=== PATIENT | female | born 1955 | race Hispanic/Latino ===

== ENCOUNTER 2017-06-26 10:09 | Outpatient (CLI) | payer OTHER ==
[2017-06-26 10:58] LABS: #Eosinphils 0.5 thou/uL (0.0-0.7); #Lymphocytes 1.6 thou/uL (1.20-3.40); #Monocytes 0.4 thou/uL (0.11-0.59); #Neutrophils 5.8 thou/uL (1.40-6.50); %Basophils 0.5 % (0.0-1.0); %Eosinophils 5.7 % (0.0-10.0); %Lymphocytes 19.2 % (21.0-51.0); %Monocytes 4.9 % (0.0-10.0); %Neutrophils 69.7 % (42.0-75.0); Mean Corpuscular HGB CONC 33.2 g/dL (32.0-36.0); Mean Corpuscular Hemoglobin 31.4 pg (27.0-31.0); Mean Corpuscular Volume 94.4 fl (81.0-99.0); Mean Platelet Volume 10.2 fL (7.4-10.4); Platelet Count 257 thou/uL (130-400); RBC Distribution Width 12.4 % (11.5-14.5); Red Blood Cell (RBC) Count 4.48 mill/uL (4.20-5.40); White Blood Cell (WBC) Count 8.4 thou/uL (4.8-10.8)
[2017-06-26 11:28] LABS: ALT (SGPT) 43 U/L (8-55); AST (SGOT) 34 U/L (5-34); Albumin 4.4 g/dL (3.5-5.0); Alkaline Phosphatase 104 U/L (40-150); Anion Gap 15 mmol/L (10-20); BUN (Urea Nitrogen) 13 mg/dL (9.8-20.1); Bilirubin, Total 0.7 mg/dL (0.2-1.2); Calc. Creatinine Clearance 0 mL/min (70-130); Calcium 10.2 mg/dL (7.8-10.44); Carbon Dioxide 26 mmol/L (22-29); Chloride 101 mmol/L (98-107); Estimated GFR-MDRD 84; Globulin 2.9 g/dL (2.4-3.5); Glucose 164 mg/dL (70-105); Potassium 3.9 mmol/L (3.5-5.1); Protein, Total 7.3 g/dL (6.0-8.3); Sodium 138 mmol/L (136-145)
--- NOTE | 2017-07-01 08:44 | EKG ---
Test Reason : Blood Pressure : / mmHG Vent. Rate : 080 BPM Atrial Rate : 080 BPM P-R Int : 194 ms QRS Dur : 078 ms QT Int : 380 ms P-R-T Axes : 053 003 032 degrees QTc Int : 438 ms Normal sinus rhythm Inferior infarct , age undetermined Possible Anterior infarct , age undetermined Abnormal ECG No previous ECGs available Confirmed by ANA SANTORO MD ([id number]) on 07/01/2017 8:43:41 AM Referred By: TONIE Confirmed By:ANA SANTORO MD
== END 2017-06-26 10:10 | disposition home or self-care (01) ==
LOC: LABBT 10:09
PROVIDERS: ATTEND Surgery
DX: Z01.818 Encounter for other preprocedural examination (principal); K43.2 Incisional hernia without obstruction or gangrene
CPT/HCPCS: 80053; 85025; 93005; 93010

== ENCOUNTER 2017-06-26 10:41 | Outpatient (CLI) | payer OTHER | END 2017-06-26 10:42 | disposition home or self-care (01) | LOC: BICMAMMO 10:41 | PROVIDERS: ATTEND Family Medicine | DX: Z12.31 Encounter for screening mammogram for malignant neoplasm of breast (principal) | CPT/HCPCS: 77063; 77067 ==

== ENCOUNTER 2017-07-05 08:18 | Inpatient (IN) | payer OTHER ==
[2017-06-26 10:38] VITALS: BMI 49.5
[2017-07-05] MEDS ORDERED: CEFAZOLIN/Water 2 GM/20 ML SYRINGE ONE (11:15)
[2017-07-05] MEDS ORDERED: Bupivacaine/Epinephrine 0.25% 30 ML VIAL ONE (12:49)
[2017-07-05] MEDS ORDERED: Midazolam HCl 2 mg/2 ml Vial ONE (12:54)
[2017-07-05] MEDS ORDERED: Lidocaine 1% (PF) 30 ML VIAL ONE (12:54)
[2017-07-05] MEDS ORDERED: Fentanyl 100 MCG/2 ML VIAL ONE (12:54)
[2017-07-05] MEDS ORDERED: HYDROmorphone 0.5 MG/0.5 ML SYRINGE ONE ×3 (12:54→15:56)
[2017-07-05] MEDS ORDERED: Glycopyrrolate 0.2 MG/ML 5 ML SYRINGE ONE ×2 (13:08)
[2017-07-05] MEDS ORDERED: Ketorolac Tromethamine 30 MG/ML VIAL ONE (13:08)
[2017-07-05] MEDS ORDERED: Lidocaine 1% PF 5 ML VIAL ONE (13:08)
[2017-07-05] MEDS ORDERED: Dexamethasone 20 MG/5 ML VIAL ONE (13:08)
[2017-07-05] MEDS ORDERED: PROPOFOL 200 MG/20 ML VIAL ONE (13:08)
[2017-07-05] MEDS ORDERED: Ondansetron HCl/PF 4 MG/2 ML Vial ONE ×2 (13:08→13:10)
[2017-07-05] MEDS ORDERED: Zolpidem Tartrate 5 MG TAB PO PRN (13:54)
[2017-07-05] MEDS ORDERED: Morphine Sulfate 2 MG/ML SYRINGE SLOW IVP PRN (13:54)
[2017-07-05] MEDS ORDERED: diphenhydrAMINE 25 MG CAP PO PRN (13:54)
[2017-07-05] MEDS ORDERED: Promethazine HCl 25 MG/ML VIAL IM PRN ×3 (13:54→14:37)
[2017-07-05] MEDS ORDERED: Ondansetron HCl/PF 4 MG/2 ML Vial IVP PRN ×3 (13:54→14:37)
[2017-07-05] MEDS ORDERED: Meperidine HCl/PF 25 MG/ML VIAL SLOW IVP PRN (13:54)
[2017-07-05] MEDS ORDERED: Naloxone HCl 0.4 mg/ml Vial IV PRN (13:54)
[2017-07-05] MEDS ORDERED: Promethazine HCl 25 MG/ML VIAL SLOW IVP PRN (13:54)
[2017-07-05] MEDS ORDERED: diphenhydrAMINE 50 MG/ML VIAL IVP PRN (13:54)
[2017-07-05] MEDS ORDERED: diphenhydrAMINE 50 MG/ML VIAL IM PRN (13:54)
[2017-07-05] MEDS ORDERED: Communication Order-Pharmacy FS SCH (14:00)
[2017-07-05] MEDS ORDERED: hydrALAZINE 20 MG/ML VIAL SLOW IVP PRN (14:37)
[2017-07-05] MEDS ORDERED: Morphine 4 MG/ML VIAL SLOW IVP PRN (14:37)
[2017-07-05] MEDS ORDERED: Morphine 4 MG/ML Carpuject SLOW IVP PRN (14:37)
[2017-07-05] MEDS ORDERED: Dextrose 5% in Water 1,000 ML IV PRN (14:37)
[2017-07-05] MEDS ORDERED: Dextrose 50% Abboject 50 ML SYRINGE SLOW IVP PRN (14:37)
[2017-07-05] MEDS ORDERED: HYDROcodone/Acetaminophen 10/325 mg Tablet PO PRN ×2 (14:37)
[2017-07-05] MEDS ORDERED: Morphine 4 MG/ML VIAL ONE ×3 (14:57→15:33)
--- NOTE | 2017-07-05 14:59 | OP ---
PREOPERATIVE DIAGNOSIS: Incisional ventral hernia. SURGEON: Ramos Peace M.D. PROCEDURE PERFORMED: Laparoscopic ventral hernia repair with mesh. INDICATIONS: This is a 61-year-old female with a painful incisional hernia at the medial aspect of s ubcostal incision from previous open cholecystectomy, it was enlarging and causing pain. FINDINGS: There was a large amount of omental fat entrapped and a 2 cm defect. This was able to be reduced. Defect was closed and buttressed with mesh. PROCEDURE IN DETAIL: After informed consent was obtained, the patient was taken to the operating lilo m and given general endotracheal anesthesia. She was placed in the supine position left side slightl y propped up. Her flank and abdomen were prepped and draped in usual fashion. Local anesthesia infi ltrated subcutaneously and deep and a 12 mm incision was performed at left flank. Veress needle inse rted. Drop test performed. Pneumoperitoneum was created to a volume of 2 liters of carbon dioxide. Utilizing a bladeless 12 mm trocar and 0 degree laparoscope, direct visual entry into the abdominal cavity was performed. Pneumoperitoneum was created to a pressure of 15 mmHg initially. A laparoscop ic lysis of adhesions was performed and the hernia contents were reduced. The falciform ligament was also from the anterior abdominal wall. The defect measured at 2 cm. A 6 inch round Proce ed mesh was fashioned with 0 Ethibond placed in four quadrants. It was hydrated, rolled, and inserte d intra-abdominally. Then, the pressure was reduced to 10 mmHg. The sutures were individually grasp ed to position the mesh optimally to cover the defect. Then these were tied down and the SecureStrap Tacker was used to tack the mesh circumferentially to the abdominal wall, then hemostasis assured. Trocars and retractors removed. The fascia closed and the skin closed with interrupted 4-0 Rapide. Dermabond applied. The patient tolerated the procedure well and was transferred to recovery in good condition. Sponge and needle count verified correct x2.
[2017-07-05] MEDS ORDERED: HYDROmorphone 0.5 MG/0.5 ML SYRINGE SLOW IVP PRN (15:33)
[2017-07-05] MEDS: Acetaminophen 1,000 MG in Premix Bag 1 BAG IVPB SCH (17:44)
[2017-07-05] MEDS: Ketorolac Tromethamine 30 MG/ML VIAL IVP SCH (17:45)
[2017-07-05] MEDS: Lactated Ringer's 1,000 ML IV SCH (17:48)
[2017-07-05] MEDS: Famotidine 20 MG TAB PO SCH (20:18)
[2017-07-05] MEDS: HumaLOG 300 UNITS/3 ML VIAL SC PRN (20:35)
[2017-07-05] MEDS: cefOXitin 2 GM in Sodium Chloride 0.9% 100 ML IVPB SCH (21:49)
[2017-07-05] MEDS: Famotidine 40 MG/4 ML VIAL SLOW IVP SCH (21:52)
[2017-07-06] MEDS: Acetaminophen 1,000 MG in Premix Bag 1 BAG IVPB SCH ×3 (00:22→11:28)
[2017-07-06] MEDS: Lactated Ringer's 1,000 ML IV SCH (00:22)
[2017-07-06] MEDS: Ketorolac Tromethamine 30 MG/ML VIAL IVP SCH ×3 (00:22→11:27)
[2017-07-06 05:40] LABS: #Monocytes 0.5 thou/uL (0.11-0.59); #Neutrophils 9.6 thou/uL (1.40-6.50); %Basophils 0.1 % (0.0-1.0); %Eosinophils 0.1 % (0.0-10.0); %Lymphocytes 9.3 % (21.0-51.0); %Monocytes 4.5 % (0.0-10.0); Hemoglobin 11.7 g/dL (12.0-16.0); Mean Corpuscular HGB CONC 33.2 g/dL (32.0-36.0); Mean Corpuscular Hemoglobin 30.9 pg (27.0-31.0); Mean Corpuscular Volume 93.2 fl (81.0-99.0); Mean Platelet Volume 9.5 fL (7.4-10.4); Platelet Count 205 thou/uL (130-400); RBC Distribution Width 12.4 % (11.5-14.5); White Blood Cell (WBC) Count 11.2 thou/uL (4.8-10.8)
[2017-07-06 05:47] LABS: Anion Gap 13 mmol/L (10-20); BUN (Urea Nitrogen) 17 mg/dL (9.8-20.1); Calc. Creatinine Clearance 196 mL/min (70-130); Calcium 8.5 mg/dL (7.8-10.44); Carbon Dioxide 23 mmol/L (22-29); Chloride 104 mmol/L (98-107); Estimated GFR-MDRD Greater than 90; Glucose 168 mg/dL (70-105); Potassium 3.9 mmol/L (3.5-5.1); Sodium 136 mmol/L (136-145)
[2017-07-06] MEDS: HumaLOG 300 UNITS/3 ML VIAL SC PRN (06:27)
[2017-07-06] MEDS: cefOXitin 2 GM in Sodium Chloride 0.9% 100 ML IVPB SCH (06:55)
[2017-07-06] MEDS: Famotidine 40 MG/4 ML VIAL SLOW IVP SCH (08:01)
[2017-07-06] MEDS: Famotidine 20 MG TAB PO SCH (08:01)
[2017-07-06] MEDS ORDERED: Enoxaparin Sodium 40 MG/0.4 ML SYRINGE SC SCH (09:00)
[2017-07-06 11:46] VITALS: BP 101/63; TEMP 98
--- NOTE | 2017-07-06 13:08 | DIS ---
DISCHARGE DIAGNOSIS: Incisional ventral hernia. PROCEDURES DURING ADMISSION: Laparoscopic ventral hernia repair with mesh. HOSPITAL COURSE: The patient was admitted because of pain control. She is doing much better now. V ital signs are fine. She is tolerating liquids. Her pain is controlled on oral medications. She is discharged home on Poyntelle and Zofran. She will follow up with me in 2 weeks.
== END 2017-07-06 13:57 | disposition home or self-care (01) | DRG 355 ==
LOC: SDC 08:18 → OBSVTOIN 14:37 → SURG A 14:37
PROVIDERS: ADMIT Surgery; ATTEND Surgery
PROC: 0WUF4JZ Supplement Abdominal Wall with Synthetic Substitute, Percutaneous Endoscopic Approach (ICD-10-PCS; principal; 2017-07-05)
DX: K43.2 Incisional hernia without obstruction or gangrene (principal)
CPT/HCPCS: 36415; 36416; 80048; 85025; J0131; J0694; J1100; J1170; J1650; J1885; J2001; J2250; J2270; J2405; J2704; J3010; J7050

== ENCOUNTER 2017-07-20 06:58 | Day surgery (SDC) | payer OTHER ==
[2017-07-19 17:15] VITALS: BMI 48.8
[2017-07-20] MEDS ORDERED: Lidocaine 1% PF 5 ML VIAL ONE (10:39)
[2017-07-20] MEDS ORDERED: PROPOFOL 200 MG/20 ML VIAL ONE (10:39)
--- NOTE | 2017-07-20 10:53 | OP ---
DATE OF PROCEDURE: 07/20/2017 PROCEDURE: Screening colonoscopy. PREOPERATIVE DIAGNOSIS: Colon cancer screening. OPERATIVE NOTE: Informed consent was obtained from the patient. She was sedated with total intraven ous anesthesia. The rectal exam was performed and was normal. The preparation quality was good. Th e colonoscope was advanced to the cecum without difficulty, where the ileocecal valve and appendiceal orifice were clearly identified. There was mild diverticulosis throughout the left colon and transv erse colon. The retroflexed views in the rectum were normal. The colonic mucosa was otherwise michael l. IMPRESSION: 1. Diverticulosis throughout the transverse and left colon. This is mild overall. 2. Otherwise normal exam. RECOMMENDATIONS: Repeat colon cancer screening in 10 years.
== END 2017-07-20 11:25 | disposition home or self-care (01) ==
LOC: SDC 06:58
PROVIDERS: ATTEND Internal Medicine Gastroenterology
PROC: 0DJD8ZZ Inspection of Lower Intestinal Tract, Via Natural or Artificial Opening Endoscopic (ICD-10-PCS; principal; 2017-07-20)
DX: Z12.11 Encounter for screening for malignant neoplasm of colon (principal); K57.30 Diverticulosis of large intestine without perforation or abscess without bleeding; K21.9 Gastro-esophageal reflux disease without esophagitis; Z79.84 Long term (current) use of oral hypoglycemic drugs; Z79.899 Other long term (current) drug therapy
CPT/HCPCS: J2001; J2704

== ENCOUNTER 2018-06-27 07:51 | Outpatient (CLI) | payer OTHER ==
--- NOTE | 2018-06-27 09:16 | MMO ---
Bilateral MAMMO Bilat Screen [facility]. CLINICAL HISTORY: Patient is 62 years old and is seen for screening. The patient has no family history of breast cancer. The patient has no personal history of cancer. The patient has a history of right Excisional Biopsy in 1997 - benign. VIEWS: The views performed were: bilateral craniocaudal with tomosynthesis and bilateral mediolateral oblique with tomosynthesis. FILMS COMPARED: The present examination has been compared to prior imaging studies performed at [facility] on 02/11/2008, 04/13/2009, 04/14/2010, 06/10/2012, 06/11/2013, 06/12/2014, 06/15/2015, 06/16/2016 and 06/26/2017, and at [facility] on 03/28/2001, 04/04/2001 and 07/18/2002. MAMMOGRAM FINDINGS: There are scattered fibroglandular densities. Benign calcifications are noted bilaterally. There are no suspicious masses, suspicious calcifications, or new areas of architectural distortion. IMPRESSION: THERE IS NO MAMMOGRAPHIC EVIDENCE OF MALIGNANCY. A ROUTINE FOLLOW-UP MAMMOGRAM IN 1 YEAR IS RECOMMENDED. THE RESULTS OF THIS EXAM WERE SENT TO THE PATIENT. ACR BI-RADS Category 2 - Benign finding MAMMOGRAPHY NOTE: 1. A negative mammogram report should not delay a biopsy if a dominant of clinically suspicious mass is present. 2. Approximately 10% to 15% of breast cancers are not detected by mammography. 3. Adenosis and dense breasts may obscure an underlying neoplasm.
== END 2018-06-27 07:52 | disposition home or self-care (01) ==
LOC: BICMAMMO 07:51
PROVIDERS: ATTEND Family Medicine
DX: Z12.31 Encounter for screening mammogram for malignant neoplasm of breast (principal)
CPT/HCPCS: 77063; 77067

== ENCOUNTER 2018-09-24 06:44 | Day surgery (SDC) | payer OTHER ==
[2018-09-23 11:02] VITALS: BMI 51.5
[2018-09-24] MEDS ORDERED: PROPOFOL 200 MG/20 ML VIAL ONE (10:52)
--- NOTE | 2018-09-24 14:14 | OP ---
DATE OF PROCEDURE: 09/24/2018 PROCEDURE: Screening colonoscopy. PREOPERATIVE DIAGNOSIS: Colon cancer screening. OPERATIVE NOTE: Informed consent was obtained from the patient. She was sedated with total intravenous anesthesia. The rectal exam was performed and was normal. The colonoscope was advanced to the cecum where the ileocecal valve and appendiceal orifice were clearly identified. The preparation quality was excellent. There was moderate diverticulosis of the distal transverse colon, descending colon, and sigmoid colon. The remainder of the colonic mucosa was normal. Retroflex views in the rectum were normal. IMPRESSION: 1. Left-sided moderate diverticulosis. 2. Otherwise normal screening colonoscopy. RECOMMENDATIONS: Repeat colonoscopy in 10 years. Job ID: [id number]
== END 2018-09-24 09:34 | disposition home or self-care (01) ==
LOC: SDC 06:44
PROVIDERS: ATTEND Internal Medicine Gastroenterology
PROC: 0DJD8ZZ Inspection of Lower Intestinal Tract, Via Natural or Artificial Opening Endoscopic (ICD-10-PCS; principal; 2018-09-24)
DX: Z12.11 Encounter for screening for malignant neoplasm of colon (principal); K57.30 Diverticulosis of large intestine without perforation or abscess without bleeding; E11.9 Type 2 diabetes mellitus without complications; E78.00 Pure hypercholesterolemia, unspecified; I10 Essential (primary) hypertension; Z79.84 Long term (current) use of oral hypoglycemic drugs; Z79.1 Long term (current) use of non-steroidal anti-inflammatories (NSAID); Z79.899 Other long term (current) drug therapy
CPT/HCPCS: J2704

== ENCOUNTER 2019-10-11 23:23 | Emergency (ER) | payer OTHER ==
[2019-10-11] MEDS ORDERED: Ketorolac Tromethamine 30 MG/ML VIAL ONE (23:47)
[2019-10-12 00:14] LABS: #Eosinphils 0.2 thou/uL (0.0-0.7); #Lymphocytes 2.1 thou/uL (1.20-3.40); #Monocytes 0.7 thou/uL (0.11-0.59); #Neutrophils 8.2 thou/uL (1.40-6.50); %Basophils 0.4 % (0.0-1.0); %Eosinophils 1.7 % (0.0-10.0); %Lymphocytes 18.3 % (21.0-51.0); %Monocytes 5.8 % (0.0-10.0); %Neutrophils 73.7 % (42.0-75.0); Mean Corpuscular HGB CONC 32.8 g/dL (32.0-36.0); Mean Corpuscular Hemoglobin 30.9 pg (27.0-31.0); Mean Platelet Volume 10.7 fL (7.4-10.4); Platelet Count 223 thou/uL (130-400); Red Blood Cell (RBC) Count 4.54 mill/uL (4.20-5.40); White Blood Cell (WBC) Count 11.2 thou/uL (4.8-10.8)
[2019-10-12 00:42] LABS: ALT (SGPT) 23 U/L (8-55); AST (SGOT) 21 U/L (5-34); Alkaline Phosphatase 106 U/L (40-110); Anion Gap 15 mmol/L (10-20); BUN (Urea Nitrogen) 29 mg/dL (9.8-20.1); Bilirubin, Total 0.4 mg/dL (0.2-1.2); Calc. Creatinine Clearance 0 mL/min (70-130); Calcium 10.1 mg/dL (7.8-10.44); Carbon Dioxide 26 mmol/L (23-31); Chloride 100 mmol/L (98-107); Estimated GFR-MDRD 75; Globulin 3.6 g/dL (2.4-3.5); Glucose 181 mg/dL (80-115); Lipase 26 U/L (8-78); Protein, Total 7.6 g/dL (6.0-8.3); Sodium 137 mmol/L (136-145)
[2019-10-12] MEDS ORDERED: Morphine 4 MG/ML VIAL ONE (01:27)
[2019-10-12] MEDS ORDERED: Ondansetron PF 4 MG/2 ML Vial ONE (01:27)
[2019-10-12 01:33] LABS: Bilirubin Negative (Negative); Blood, Urine 2+ (Negative); Clarity Clear (Clear); Glucose, Urine (Dipstick) Normal (Negative); Ketone, Urine Negative (Negative); Leukocyte 250 Leu/uL (Negative); Nitrite Negative (Negative); Protein, Urine (Dipstick) Negative (Neg-Trace); Specific Gravity, Urine 1.022 (1.002-1.036); Urobilinogen Normal mg/dL (Less than 2)
[2019-10-12 01:51] LABS: Bacteria/HPF 1+ HPF (None Seen)
--- NOTE | 2019-10-12 07:40 | CT ---
PRELIMINARY REPORT/[facility]/EMERGENCY AFTER HOURS PROCEDURE EXAM: CT Abdomen and Pelvis Without Intravenous Contrast CLINICAL HISTORY: Pt reports left flank pain X 2 days with associated nausea. Denies vomiting, diarrhea, fever, vag ble eding/discharge, or urinary symptoms. No alleviating or aggravating factors. 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 CONTRAST: None. COMPARISON: None provided. FINDINGS: LUNG BASES: No basilar airspace consolidation or pleural effusion. LIVER: Unremarkable. GALLBLADDER AND BILE DUCTS: Surgically absent. No ductal dilation. PANCREAS: Unremarkable. SPLEEN: Unremarkable. ADRENAL GLANDS: Unremarkable. KIDNEYS, URETERS, AND BLADDER: Mild left renal enlargement with perinephric stranding. 5 mm calcification in the left mid ureter, c oronal image 82, axial image 50 with resulting moderate hydroureteronephrosis. STOMACH AND BOWEL: No obstruction. No wall thickening. Scattered sigmoid diverticulosis. No CT evidence of colitis or acute diverticulitis. APPENDIX: No CT evidence for appendicitis. PERITONEUM: No free fluid. No free air. LYMPH NODES: No lymphadenopathy. REPRODUCTIVE: Unremarkable as visualized. VASCULATURE: No aortic aneurysm. ABDOMINAL WALL AND SOFT TISSUES: Unremarkable. BONES: No fracture or suspicious osseous abnormality. Mild multilevel degenerative changes of the spine. IMPRESSION: 1. Obstructing left mid ureteral 5 mm stone with moderate hydroureteronephrosis. 2. Scattered sigmoid diverticulosis without evidence of acute diverticulitis. ELECTRONICALLY SIGNED BY: Silviano Pastrana DO Oct 12, 2019 12:59:55 AM CDT This report is intended for review by the ordering physician only, in accordance of law. If you recei ve this report in error, please call [facility] at [phone]. FINAL REPORT CT Stone Protocol History: Left flank pain Comparison: None. Findings/Impression: Concordant with the preliminary report. Transcribed Date/Time: 10/12/2019 7:44 AM
== END 2019-10-12 02:18 | disposition home or self-care (01) ==
LOC: ERS 23:23
DX: N13.2 Hydronephrosis with renal and ureteral calculous obstruction (principal); N39.0 Urinary tract infection, site not specified; I10 Essential (primary) hypertension; E11.9 Type 2 diabetes mellitus without complications; E78.00 Pure hypercholesterolemia, unspecified; Z79.4 Long term (current) use of insulin; Z79.899 Other long term (current) drug therapy
CPT/HCPCS: 74176; 80053; 81003; 81015; 83690; 85025; 96361; 96374; 96375; J1885; J2270; J2405

== ENCOUNTER 2019-11-10 11:37 | Outpatient (CLI) | payer OTHER ==
--- NOTE | 2019-11-10 12:16 | RAD ---
EXAM: XR Abdomen 1 View/KUB PROVIDED CLINICAL HISTORY: Hematuria COMPARISON: 10/12/2019 FINDINGS: The abdominal bowel gas pattern is nonspecific. The previously demonstrated urinary tract calculi see n on prior CT are not radiographically apparent. Vascular calcifications overlie the pelvis. Cholecystectomy clips are seen in the right upper quadrant. The osseous structures demonstrate no con cerning lytic or blastic lesions. IMPRESSION: No radiographically apparent urinary tract calculi.
== END 2019-11-10 11:38 | disposition home or self-care (01) ==
LOC: BICRAD 11:37
PROVIDERS: ATTEND Urology
DX: N20.1 Calculus of ureter (principal)
CPT/HCPCS: 74018

== ENCOUNTER 2019-11-24 06:07 | Outpatient (CLI) | payer OTHER ==
[2019-11-24 14:21] LABS: #Basophils 0.1 thou/uL (0.0-0.2); #Eosinphils 0.1 thou/uL (0.0-0.7); #Lymphocytes 2.2 thou/uL (1.20-3.40); #Monocytes 0.5 thou/uL (0.11-0.59); #Neutrophils 9.4 thou/uL (1.40-6.50); %Basophils 0.5 % (0.0-1.0); %Eosinophils 0.6 % (0.0-10.0); %Lymphocytes 18.2 % (21.0-51.0); %Monocytes 4.1 % (0.0-10.0); %Neutrophils 76.6 % (42.0-75.0); Hemoglobin 14.8 g/dL (12.0-16.0); Mean Corpuscular Hemoglobin 30.8 pg (27.0-31.0); Mean Corpuscular Volume 93.3 fL (78.0-98.0); Mean Platelet Volume 11.2 fL (7.4-10.4); Platelet Count 299 thou/uL (130-400); RBC Distribution Width 12.8 % (11.5-14.5); Red Blood Cell (RBC) Count 4.79 mill/uL (4.20-5.40); White Blood Cell (WBC) Count 12.3 thou/uL (4.8-10.8)
[2019-11-24 20:11] LABS: Chloride 97 mmol/L (98-107); Potassium 3.3 mmol/L (3.5-5.1); Sodium 137 mmol/L (136-145)
[2019-11-24 20:12] LABS: Calcium 9.8 mg/dL (7.8-10.44)
[2019-11-24 20:14] LABS: Anion Gap 20 mmol/L (10-20); Carbon Dioxide 23 mmol/L (23-31)
[2019-11-24 21:36] LABS: Calc. Creatinine Clearance 0 mL/min (70-130); Estimated GFR-MDRD 63
[2019-11-25 01:51] LABS: BUN (Urea Nitrogen) 13 mg/dL (9.8-20.1)
[2019-11-25 01:53] LABS: Glucose 230 mg/dL (80-115)
[2019-11-25 13:00] LABS: SARS-CoV-2 MS2 Positive; SARS-CoV-2 N Gene Negative; SARS-CoV-2 S Gene Negative; SARS-CoV-2 by NAA Not Detected (NotDetected); SARS-CoV-2 orf1ab Negative
== END 2019-11-24 06:08 | disposition home or self-care (01) ==
LOC: LABBT 06:07
PROVIDERS: ATTEND Surgery
DX: Z01.812 Encounter for preprocedural laboratory examination (principal); Z20.828 Contact with and (suspected) exposure to other viral communicable diseases; D05.11 Intraductal carcinoma in situ of right breast
CPT/HCPCS: 80048; 85025; 87635; U0003

== ENCOUNTER 2019-11-27 06:57 | Day surgery (SDC) | payer OTHER ==
[2019-11-25 12:34] VITALS: BMI 45.1
[2019-11-27] MEDS ORDERED: Methylene Blue 50 MG/10 ML AMPUL ONE (10:20)
[2019-11-27] MEDS ORDERED: Bupivacaine 0.25% HCL 30 ML VIAL ONE (10:20)
[2019-11-27] MEDS ORDERED: Lidocaine 1% w/Epinephrine 1:100K 20 ML VIAL ONE (10:20)
[2019-11-27] MEDS ORDERED: Fentanyl 100 MCG/2 ML VIAL ONE ×3 (10:24→13:31)
[2019-11-27] MEDS ORDERED: Lidocaine 2% Jelly 5 ML TUBE ONE (10:24)
[2019-11-27] MEDS ORDERED: Lidocaine 1% PF 5 ML VIAL ONE (10:30)
[2019-11-27] MEDS ORDERED: Rocuronium Bromide 10 MG/ML (10ML VIAL) ONE (10:30)
[2019-11-27] MEDS ORDERED: Ondansetron PF 4 MG/2 ML Vial ONE (10:30)
[2019-11-27] MEDS ORDERED: PROPOFOL 200 MG/20 ML VIAL ONE (10:30)
[2019-11-27] MEDS ORDERED: Glycopyrrolate 0.2 MG/ML 5 ML SYRINGE ONE (10:30)
[2019-11-27] MEDS ORDERED: Ketorolac Tromethamine 30 MG/ML VIAL ONE (10:30)
--- NOTE | 2019-11-27 13:00 | MMO ---
MAMMOGRAM SURGICAL SPECIMEN: Date: 11/27/2019 HISTORY: Left DCIS. FINDINGS/IMPRESSION: The surgical specimen demonstrates tiny calcifications, biopsy clip, and a guidewire. POS: [place]
--- NOTE | 2019-11-27 20:58 | OP ---
DATE OF PROCEDURE: 11/27/2019 PREOPERATIVE DIAGNOSIS: Right breast ductal carcinoma in situ. POSTOPERATIVE DIAGNOSIS: Right breast ductal carcinoma in situ. PROCEDURE PERFORMED: Right breast partial mastectomy after needle localization. ANESTHESIA: General. ESTIMATED BLOOD LOSS: Minimal. COMPLICATIONS: None. SPECIMENS: Right breast mass marked with 2 short superior, 1 long lateral, sent to Pathology for final diagnosis DESCRIPTION OF PROCEDURE: The patient had undergone placement of needle localization wire prior to surgery, taken to the operating room in supine. After general anesthetic was obtained, the right breast needle localization wire all prepped and draped in a sterile fashion. An incision was made on the medial areolar edge of the right breast. Flaps were raised superiorly, medially, inferolaterally, and posterior to the end of needle localization wire. The specimen was sent to specimen x-ray, which revealed the clip to be in the specimen. It was then marked with 2 short superior, 1 long lateral, and sent to Pathology for final diagnosis. Meticulous hemostasis was obtained in the open wound. Local anesthetic was applied. Wound was closed with 3-0 Vicryl, 4-0 Monocryl, and Dermabond. The patient was sent to Recovery in stable condition. All instrument counts, needle counts, and lap counts were correct. Job ID: [id number]
--- NOTE | 2019-11-28 08:33 | MMO ---
EXAM: RIGHT BREAST NEEDLE LOCALIZATION WITH MAMMOGRAPHIC GUIDANCE: SURGICAL SPECIMEN 11/27/19 HISTORY: Known right breast cancer. FINDINGS: Successful right breast needle location. A 7.5 cm [place] needle and wire were advanced into the right breast via a mediolateral approach. The wire was deployed. The wire was secured to the patient. TECHNIQUE: Consent obtained to perform a right breast needle localization with mammographic guidance. Right [address] was prepped and draped in a sterile fashion. Via needle approach, a 7.5 cm [place] needle and wire w ere advanced into the right breast. The wire was secured to the patient. Patient tolerated the proced ure well. No immediate postprocedure complication. SURGICAL SPECIMEN: [place] wire, clip and calcifications are present. Findings were conveyed by Dr. Edwards to the OR. IMPRESSION: Successful needle localization. POS: RON
--- NOTE | 2019-12-01 15:22 | EKG ---
Test Reason : PREOP Blood Pressure : / mmHG Vent. Rate : 080 BPM Atrial Rate : 080 BPM P-R Int : 194 ms QRS Dur : 078 ms QT Int : 400 ms P-R-T Axes : 061 -04 029 degrees QTc Int : 461 ms Normal sinus rhythm Normal ECG No previous ECGs available Confirmed by MILLER BURROUGHS M.D. ([id number]) on 12/01/2019 3:22:29 PM Referred By: ANGEL Confirmed By:MILLER BURROUGHS M.D.
== END 2019-11-27 14:50 | disposition home or self-care (01) ==
LOC: SDC 06:57
PROVIDERS: ATTEND Surgery
PROC: 0HBT0ZZ Excision of Right Breast, Open Approach (ICD-10-PCS; principal; 2019-11-27)
DX: D05.11 Intraductal carcinoma in situ of right breast (principal); N60.91 Unspecified benign mammary dysplasia of right breast; N60.11 Diffuse cystic mastopathy of right breast; E11.9 Type 2 diabetes mellitus without complications; I10 Essential (primary) hypertension; E78.5 Hyperlipidemia, unspecified; M17.0 Bilateral primary osteoarthritis of knee; E66.01 Morbid (severe) obesity due to excess calories; Z68.42 Body mass index [BMI] 45.0-49.9, adult; Z79.84 Long term (current) use of oral hypoglycemic drugs; Z79.899 Other long term (current) drug therapy
CPT/HCPCS: 19281; 36416; 76098; 88307; 93005; 93010; J0690; J1885; J2405; J2704; J3010; Q9968; S0020

== ENCOUNTER 2021-11-09 08:15 | Outpatient (CLI) | payer OTHER | END 2021-11-09 08:16 | disposition home or self-care (01) | LOC: BICMAMMO 08:15 | PROVIDERS: ATTEND Family Medicine | DX: R92.8 Other abnormal and inconclusive findings on diagnostic imaging of breast (principal) | CPT/HCPCS: 77066; G0279 ==

== ENCOUNTER 2022-11-22 08:32 | Outpatient (CLI) | payer OTHER | END 2022-11-22 08:33 | disposition home or self-care (01) | LOC: BICMAMMO 08:32 | PROVIDERS: ATTEND Internal Medicine Hematology & Oncology | DX: D05.11 Intraductal carcinoma in situ of right breast (principal) | CPT/HCPCS: 77066; G0279 ==